=== PATIENT | female | born 1985 | race Two or more races ===

== ENCOUNTER 2019-03-05 16:27 | Emergency (ER) | payer SELFPAY ==
[~2019-03-05] VITALS: Ht 160 cm; Wt 169.9 kg
[2019-03-05 16:32] VITALS: BP 153/97
--- NOTE | 2019-03-05 16:45 | NUR ---
Pt ambulated to room from triage with steady gait, without assistance.
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
[2019-03-05] MEDS ORDERED: KETOROLAC 30 MG/1 ML IM ONE (17:00)
[2019-03-05] MEDS ORDERED: KETOROLAC 30 MG/1 ML ONE (17:00)
== END 2019-03-05 17:52 | disposition home or self-care (01) ==
LOC: ED 17:45
DX: S62.652A Nondisplaced fracture of middle phalanx of right middle finger, initial encounter for closed fracture (principal); S62.654A Nondisplaced fracture of middle phalanx of right ring finger, initial encounter for closed fracture; R07.81 Pleurodynia; Z72.9 Problem related to lifestyle, unspecified; X58.XXXA Exposure to other specified factors, initial encounter; Y93.89 Activity, other specified; Y92.410 Unspecified street and highway as the place of occurrence of the external cause; Y99.8 Other external cause status
CPT/HCPCS: 71046; 73130; 93005; 96372; 99283; J1885